=== PATIENT | female | born 1990 ===

== ENCOUNTER 2020-06-22 12:16 | Outpatient (REF) | payer OTHER, SELFPAY | END 2020-06-22 12:17 | disposition home or self-care (01) | LOC: HO.LAB 12:16 | PROVIDERS: Visit Provider Internal Medicine | DX: Z20.828 Contact with and (suspected) exposure to other viral communicable diseases (principal) | CPT/HCPCS: 87635 ==

== ENCOUNTER 2020-09-06 11:22 | Outpatient (REF) | payer OTHER, SELFPAY | END 2020-09-06 11:23 | disposition home or self-care (01) | LOC: HO.LAB 11:22 | PROVIDERS: Visit Provider Internal Medicine | DX: Z20.828 Contact with and (suspected) exposure to other viral communicable diseases (principal) | CPT/HCPCS: 36415; C9803; U0003 ==

== ENCOUNTER 2020-09-13 09:52 | Outpatient (REF) | payer OTHER, SELFPAY | END 2020-09-13 09:53 | disposition home or self-care (01) | LOC: HO.LAB 09:52 | PROVIDERS: Visit Provider Internal Medicine | DX: Z20.822 Contact with and (suspected) exposure to COVID-19 (principal) | CPT/HCPCS: 36415; C9803; U0003 ==

== ENCOUNTER 2020-09-25 12:53 | Outpatient (REF) | payer OTHER, SELFPAY | END 2020-09-25 12:54 | disposition home or self-care (01) | LOC: HO.LAB 12:53 | PROVIDERS: Visit Provider Internal Medicine | DX: Z20.822 Contact with and (suspected) exposure to COVID-19 (principal) | CPT/HCPCS: 36415; C9803; U0003 ==

== ENCOUNTER 2020-10-30 15:47 | Outpatient (REF) | payer OTHER, SELFPAY | END 2020-10-30 15:48 | disposition home or self-care (01) | LOC: HO.LAB 15:47 | PROVIDERS: Visit Provider Internal Medicine | DX: Z20.822 Contact with and (suspected) exposure to COVID-19 (principal) | CPT/HCPCS: 36415; C9803; U0003; U0005 ==

== ENCOUNTER 2020-11-14 12:38 | Outpatient (REF) | payer OTHER, SELFPAY | END 2020-11-14 12:39 | disposition home or self-care (01) | LOC: HO.LAB 12:38 | PROVIDERS: Visit Provider Internal Medicine | DX: Z20.822 Contact with and (suspected) exposure to COVID-19 (principal) | CPT/HCPCS: 36415; C9803; U0003; U0005 ==

== ENCOUNTER 2020-12-27 12:06 | Outpatient (REF) | payer OTHER, SELFPAY ==
[2020-12-27 12:56] LABS: COVID-19 Test Negative (Negative)
== END 2020-12-27 12:07 | disposition home or self-care (01) ==
LOC: HO.LAB 12:06
PROVIDERS: Visit Provider Internal Medicine
DX: Z20.822 Contact with and (suspected) exposure to COVID-19 (principal)
CPT/HCPCS: 36415; 87635; C9803

== ENCOUNTER 2021-07-02 08:09 | Emergency (ER) | payer SELFPAY ==
[2021-07-02 08:37] VITALS: BP 126/69; PULSE 63; RESP 18; TEMP 36.1; O2SAT 98; BMI 33.6
[2021-07-02 08:59] LABS: IDNOW Serial# 9DD0AD1C; Strep A Nucleic Acid Negative (Negative)
--- NOTE | 2021-07-02 09:50 | ED.GENADULT ---
HPI - General Adult General Chief complaint: General Medical Stated complaint: sore throat, ear pain Time Seen by Provider: 07/02/21 09:48 Source: patient Mode of arrival: ambulatory Limitations: no limitations History of Present Illness HPI narrative: 31-year-old female came in for evaluation of sore throat and ear pain. No sick contacts, no recent travel, patient declined any fever or chills. Related Data Previous Rx's Medication Instructions Recorded amoxicillin 500 mg tablet 500 mg PO Q12H #14 tab 07/02/21 Allergies Allergy/AdvReac Type Severity Reaction Status Date / Time No Known Allergies Allergy Unverified 05/18/20 16:05 Review of Systems Review of Systems: All other systems are reviewed and are negative Constitutional: Reports as per HPI and Reports no additional constitutional complaints Eyes: Reports as per HPI and Reports no additional eye complaints Reports system reviewed and no additional complaints, except as documented Cardiovascular: Reports as per HPI and Reports no additional cardiovascular complaints Respiratory: Reports as per HPI and Reports no additional respiratory complaints Gastrointestinal: Reports as per HPI and Reports no additional gastrointestinal complaints Genitourinary: Reports no additional female genitourinary complaints Musculoskeletal: Reports no additional musculoskeletal complaints Skin/Breast: Reports system reviewed and no additional complaints, except as docu Psychiatric: Reports no additional psychiatric complaints Endocrine: Reports no additional endocrine complaints Hematologic/Lymphatic: Reports no additional hematologic/lymphatic complaints Allergic/Immunologic: Reports no additional allergic/immunologic complaints Reports system reviewed and no additional complaints, except as documented and Reports Abnormal speech present [facility] Past Medical History Medical History No known health problems Social History Social History Advance Directives: No Patient : No Physical Exam Vital Signs: Vital Signs: Last Vital Signs Temp 97 F 07/02/21 08:37 Pulse 63 07/02/21 08:37 Resp 18 07/02/21 08:37 BP 126/69 07/02/21 08:37 Pulse Ox 98 07/02/21 08:37 Body Mass Index 33.6 vital signs have been reviewed as appeared to be correct. Blood pressure normal. Heart rate normal. Respiration rate normal. Temperature normal. Oxygen saturation normal. Appearance: Alert. Oriented X3. No acute distress. Head: Normal external exam. Normocephalic. Atraumatic. No Colvin signs noted. No raccoon eyes noted Eyes: PERRLA. EOMI. Conjunctiva and sclera normal. Eyelids normal. ENT: TM's Erythematous bilaterally,. Pharynx erythema. Uvula midline. Moist mucous membranes. No trismus noted. No drooling noted. No muffled voice noted. Neck: Normal inspection. Neck supple. FROM. No adenopathy. Thyroid Normal. No meningeal signs. No neck mass noted. CVS: Normal heart rate and rhythm. Heart sound normal. No murmurs noted. Pulses normal throughout. Respiratory: No respiratory distress. Painless inspiration. Breath sounds normal. No wheezes/rales/rhonchi noted. Chest nontender. No accessory muscle usage noted or decreased air movement noted. Abdomen: Soft and nontender. Bowel sounds normal in all 4 quadrants. No distention noted. No organomegaly noted. No visible injury noted. Back: No CVA tenderness. Full range of motion noted. Skin: Skin warm and dry. Normal skin color. Normal skin turgor. No rashes/lesions/lacerations noted. Extremities: No lower extremity edema. Extremities exhibit normal range of motion. Extremities nontender. Neuro: Oriented X 3. Cranial nerve exam: II-XII are grossly intact No motor deficit. No sensory deficit. Reflexes normal. Course Course Course Narrative: pharyngitis/bilateral otitis media. Will start the patient on amoxicillin. Medical Decision Making Lab Data Lab results reviewed: Yes I reviewed the patient's lab results. Labs: Lab Results 07/02/21 Range/Units 08:44 S. pyogenes GrpA CANDY Negative (Negative) Discharge Plan Discharge Clinical Impression: Pharyngitis, Otitis media Patient Disposition: Home, Self-Care Instructions: Pharyngitis (ED), Ear Infection (ED) Prescriptions: New amoxicillin 500 mg tablet 500 mg PO Q12H Qty: 14 RF: 0 Referrals: Physician,None [Primary Care Provider] - 2 days
[2021-07-02] MEDS: Amoxicillin 500 MG CAPSULE PO (10:16)
== END 2021-07-02 10:23 | disposition home or self-care (01) ==
PROVIDERS: Emergency Provider Emergency Medicine
DX: J02.9 Acute pharyngitis, unspecified (principal); H66.93 Otitis media, unspecified, bilateral
CPT/HCPCS: 36415; 87651; 99283

== ENCOUNTER 2022-05-21 14:44 | Outpatient (REF) | payer SELFPAY ==
[2022-05-21 15:05] LABS: MANUAL DIFF FLAG NO
[2022-05-21 16:21] LABS: Basophils Absolute Auto 0.1 X10*3/uL (0.0-0.2); Basophils Percent Auto 0.4 % (0-2); Eosinophils Percent Auto 0.3 % (0-4); Hematocrit 44.2 % (37.0-47.0); Hemoglobin 14.9 g/dl (12.0-16.0); Imm Gran Abs Auto 0.04 X10*3/uL (0.00-0.03); Imm Gran Pct Auto 0.3 % (0.0-0.4); Lymphocytes Absolute Auto 3.2 X10*3/uL (1.2-4.9); Lymphocytes Percent Auto 27.7 % (20-40); Mean Corpuscular HGB Conc 33.7 g/dl (31.0-35.0); Mean Corpuscular Hemoglobin 31.4 pg (27.0-33.0); Mean Corpuscular Volume 93.1 fL (80.0-98.0); Mean Platelet Volume 11.8 fL (9.4-12.3); Monocytes Absolute Auto 0.6 X10*3/uL (0.1-1.2); Monocytes Percent Auto 5.2 % (2-11); Neutrophils Absolute Auto 7.7 x10*3/uL (2.0-8.3); Neutrophils Percent Auto 66.1 % (45-73); Platelet Count 363 X10*3/uL (160-400); Red Blood Count 4.75 X10*6/uL (4.20-5.50); Red Cell Distribution Width 12.9 % (11.0-16.0); White Blood Count 11.6 X10*3/uL (4.8-10.8)
[2022-05-21 16:49] LABS: Alanine Aminotransferase 15 U/L (0-31); Albumin Level 4.9 g/dL (3.5-5.0); Alkaline Phosphatase 68 U/L (39-117); Anion Gap 19 (12-20); Aspartate Amino Transferase 17 U/L (5-31); Bilirubin Total 0.9 mg/dL (0.0-1.0); Blood Urea Nitrogen 13 mg/dL (9-16); Calcium 10.1 mg/dL (8.4-10.2); Carbon Dioxide 25 mmol/L (22-29); Chloride 101 mmol/L (96-108); Estimated Glomerular Filt Rate > 60; Glucose Random 65 mg/dL (60-115); Potassium 4.5 mmol/L (3.3-5.1); Sodium 140 mmol/L (135-145)
[2022-05-21 17:08] LABS: TSH reflex Free T4 0.42 uIU/mL (0.32-4.0)
== END 2022-05-21 14:45 | disposition home or self-care (01) ==
LOC: HO.LAB 14:44
PROVIDERS: PCP Internal Medicine; Visit Provider Internal Medicine
DX: F32.9 Major depressive disorder, single episode, unspecified (principal); F41.0 Panic disorder [episodic paroxysmal anxiety]; R63.4 Abnormal weight loss; Z72.0 Tobacco use
CPT/HCPCS: 36415; 80053; 84443; 85025

== ENCOUNTER 2023-01-21 17:25 | Emergency (ER) | payer OTHER, SELFPAY ==
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
[2023-01-21 17:37] VITALS: BP 138/79; PULSE 115; RESP 20; TEMP 36.7; O2SAT 96; BMI 29.0
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
[2023-01-21] MEDS: Acetaminophen 325 MG TABLET 650 MG PO (17:44)
--- NOTE | 2023-01-21 19:42 | PC.NURSE ---
assumed care of pt aox4 no apparent distress resting quietly tylenol administered prior to this nurse assuming care ineffective per pt pain rate remains 10/10
[2023-01-21 19:44] VITALS: BP 101/58; PULSE 67; RESP 16; TEMP 37; O2SAT 97
--- NOTE | 2023-01-21 20:13 | PC.NURSE ---
h/a and neck pain remain, chest pain resolved
[2023-01-21] MEDS: Cyclobenzaprine HCl 10 MG TABLET PO (20:40)
[2023-01-21] MEDS: Ibuprofen 600 MG TABLET PO (20:40)
[2023-01-21 20:46] VITALS: BP 119/76; PULSE 72; RESP 18; TEMP 36.5; O2SAT 97
--- NOTE | 2023-01-21 20:46 | PC.NURSE ---
administered cyclobenzaprine and ibuprofen PO per MAR
--- NOTE | 2023-01-21 20:47 | PC.NURSE ---
Discharge instructions given and explained to patient aox4 no apparent distress pt picked up by family member upon discharge ambulates safely and independently
== END 2023-01-21 20:49 | disposition home or self-care (01) ==
PROVIDERS: Emergency Provider Emergency Medicine; PCP Internal Medicine
DX: M54.2 Cervicalgia (principal); R51.9 Headache, unspecified; S13.4XXA Sprain of ligaments of cervical spine, initial encounter; V43.52XA Car driver injured in collision with other type car in traffic accident, initial encounter; Y93.9 Activity, unspecified; Y92.9 Unspecified place or not applicable; Y99.9 Unspecified external cause status
CPT/HCPCS: 70450; 71046; 72125; 99284; 99285

== ENCOUNTER 2025-05-15 00:02 | Emergency (ER) | payer OTHER, SELFPAY ==
--- NOTE | ~2025-05-15 | XR_ITS ---
CLINICAL HISTORY: back pain 3 views lumbar spine Comparison: None provided Findings: Normal vertebral body alignment. No acute fractures or dislocation. Minimal degenerative endplate changes at L5-S1. IMPRESSION: No acute fracture. This document has been electronically signed by: Lyn Maciel MD on 05/15/2025 01:47:17
[2025-05-15 00:09] VITALS: BP 118/65; PULSE 96; RESP 20; TEMP 36.5; O2SAT 97; BMI 30.1
--- NOTE | 2025-05-15 00:23 | ED_ITS ---
HPI - Back Pain/Injury General Chief Complaint: Back Pain/Injury Stated Complaint: lower back pain Time Seen by Provider: 05/15/25 00:15 History of Present Illness HPI Narrative: Patient is a 35-year-old female presents today with having lower back pain since 17:00. Patient has tried Tylenol did not help. Denies any bowel urinary incontinence. Denies any fever chills. No trauma. Patient is from home. No pain on urination. No flank pain. No radiation of the pain. Related Data Previous Rx's ?Medication ?Instructions ?Recorded amoxicillin 500 mg tablet 500 mg PO Q12H #14 tabs 11/0 09/21 cyclobenzaprine 10 mg tablet 10 mg PO TID PRN muscle s pasm #10 01/21/23 tabs ibuprofen 600 mg tablet 600 mg PO TID PRN pain #10 t abs 01/21/23 cyclobenzaprine 10 mg tablet 10 mg PO TID PRN pain #14 tabs 05/15/25 ibuprofen 400 mg tablet 400 mg PO Q6H PRN pain #20 t abs 05/15/25 Allergies Allergy/AdvReac Type Severity Reaction Status Date / Time No Known Allergies Allergy Verified 05/15/25 00:13 Review of Systems Review of Systems: Positive lower back pain Yes all other systems are reviewed and are negative [facility] Past Medical History Attestation statement: The following information was validated with the patient. Medical History No known health problems Social History Social History Alcohol intake: never Smoked in Last 30 Days: No Use of substances other than those prescribed or required for medical reasons: No Advance Directives: No Patient : No Physical Exam Exam: Exam: Appearance: Alert. Oriented X3. No acute distress. Eyes: Pupils equal, round and reactive to light. ENT: Pharynx normal. Neck: Normal inspection. Neck supple. No lymph nodes noted. No crepitus CVS: Normal heart rate and rhythm. Pulses normal. Normal S1 and S2 Respiratory: No respiratory distress. Breath sounds normal. No Wheezing. No rales Abdomen: Soft and nontender. No rigidity. No distention. good BS x4. No CVA tenderness elicited on palpation Skin: Skin warm and dry. Normal skin color. Normal skin turgor. Extremities: No lower extremity edema. Neurovascular intact to all extremities. No Lacerations. No Rash Neuro: Oriented X 3. No motor deficit. No sensory deficit. Moving all extermities. No slurred speech. Bilateral lower extremity sensation intact. Motor intact. Vital Signs: Vital Signs: Last Vital Signs Temp 97.7 F 05/15/25 00:09 Pulse 96 05/15/25 00:09 Resp 20 05/15/25 00:09 BP 118/65 05/15/25 00:09 Pulse Ox 97 05/15/25 00:09 O2 Del Method Room Air 05/15/25 00:09 BMI result Body Mass Index 30.1 Medications Administered Discontinued Medications Generic Name Dose Route Start Last Admin Trade Name Yamilex PRN Reason Stop Dose Admin Ketorolac Tromethamine 30 mg 05/15/25 00:22 05/15/25 00:44 Ketorolac Tromethamine 30 Mg/Ml Vial IM 05/15/25 00:23 30 mg ONCE ONE Administration Lorazepam 1 mg 05/15/25 00:22 05/15/25 00:44 Lorazepam 1 Mg Tablet PO 05/15/25 00:23 1 mg ONCE ONE Administration Medical Decision Making Medical Decision Making MDM Narrative: Patient claims there is no chance of being since she is not active with any med. Patient's claims the pain is in the lower back there is no bowel urinary incontinence is no focal weakness is no fever no chills. There is no trauma. She did want an x-ray explained to her more likely the x-ray will not show the pathology of the back pain but she insisted. An x-ray was ordered. No fever no chills no signs suggest patient has a spinal abscess. Patient has no history of IV drug use. She has no focal weakness. There is no signs of cauda equinus syndrome. Will give a dose of pain medication will give some muscle relaxant and monitor. Currently pending x-ray of the lower back. Patient's urine appears extremely contaminated Differential Diagnosis Differential Diagnoses: The differential diagnosis associated with the presentation includes Back pain Admission/Observation Consideration of admission/observation: Escalation of care including admission/observation considered Lab Data [facility] Lab Attestation statement: I reviewed the patient's lab results. Labs: Lab Results 05/15/25 Range/Units 01:15 Urine Color Yellow Urine Appearance Clear Urine pH 5.5 (5.0-9.0) Ur Specific [place] 1.025 (1.005-1.025) Urine Protein Negative (Neg-Trace) mg/dL Urine Glucose (UA) Negative (Negative) mg/dL Urine Ketones Negative (Negative) mg/dL Urine Blood Negative (Negative) Urine Nitrite Negative (Negative) Ur Leukocyte Esterase Trace H (Negative) Urine RBC 0-2 (0-2) /HPF Urine WBC 0-5 (0-5) /HPF Ur Squamous Epith Cells 11-20 (0-2) /HPF Urine Bacteria 3+ (None Seen) Hyaline Casts 0-2 (0-2) /LPF Independent Interpretation I performed an independent interpretation of an: Plain X-Ray (My interpretation of lumbar film was grossly negative for fracture. No malalignment) Radiology Impression Discussion of test interpretation with radiology: I have reviewed the radiologist's reading. Prescription Management I considered prescription management with: Pain Medication Social Determinants Patient?s care significantly limited by Social Determinants of Health including: Problems related to primary support group Discharge Plan Discharge Clinical Impression: Strain of lumbar region Patient Disposition: Home, Self-Care Instructions: Low Back Strain (ED) Prescriptions: New cyclobenzaprine 10 mg tablet 10 mg PO TID PRN (Reason: pain) Qty: 14 0RF ibuprofen 400 mg tablet 400 mg PO Q6H PRN (Reason: pain) Qty: 20 0RF No Action amoxicillin 500 mg tablet 500 mg PO Q12H Qty: 14 0RF cyclobenzaprine 10 mg tablet 10 mg PO TID PRN (Reason: muscle spasm) Qty: 10 0RF ibuprofen 600 mg tablet 600 mg PO TID PRN (Reason: pain) Qty: 10 0RF Referrals: Nina Arias MD [Primary Care Provider, Internal Medicine] - 05/17/25 Print Language: Swedish
--- NOTE | 2025-05-15 00:52 | PC.NURSE ---
pt medicated per oct, tolerated whole well with water. urine cup given to pt and instructed on use
--- OUTSIDE RECORDS SUMMARY | 2025-05-15 01:16 | XMS_ITS | Encounter Summary ---
Author Organization [facility] Address [address] [place] [address] Care Team Providers Care Brim Presser Name Role Phone Physician, Pcp Unknown Primary Care Provider Estrellita vailable Encounter Details Date Type Department Care Team (Late st Contact Info) Description 04/19/2025 Lab Requisition [facility] Lab [address] [facility] [place] [address] Nina Arias MD [address] [place] [address] [place] [address] Encounter for screening for malignant neoplasm of cervix Social History Tobacco Use Types Packs/Day Years Used Date Smoking Tobacco: Never Assessed Comments Unknown Sex and Gender Information Value Date Recorded Sex Assigned at Not on file Legal Sex Female 10:26 AM EST Gender Identity Not on file Sexual Orientation Not on file documented as of this encounter Plan of Treatment Pending Results Name Type Priority Associated Diagnoses Date /Time Pap smear Pathology and Cytology Routine Encounter for screening for malignant neoplasm of cervix 04/18/2025 12:00 PM EDT documented as of this encounter Procedures Procedure Name Priority Date/Time Associated Diagnosis Comments CHLAMYDIA TRACHOMATIS AND NEISSERIA GONORRHOEAE BY TMA, THINPREP Routine 04/18/2025 12:00 PM EDT Encounter for screening for malignant neoplasm of cervix HPV WITH REFLEX GENOTYPE Routine 04/18/2025 12:00 PM EDT Encounter for screening for malignant neoplasm of cervix TRICHOMONAS VAGINALIS PCR Routine 04/18/2025 12:00 PM EDT Encounter for screening for malignant neoplasm of cervix documented in this encounter Results * HPV with reflex genotype (04/18/2025 12:00 PM EDT) HPV Negative Negative LAB MICROBIOLOGY METHOD 04/19/2025 1:50 PM EDT [facility] Brushing/Spatula Cervix uteri structure / Unknown 04/18/2025 12:00 PM EDT 04/19/2025 6:37 AM EDT us Nina Arias MD LAB MOLECULAR DIAGNOSTICS ORD ERABLES Final Result [facility] [address] [place] [address], [place] [phone] * Trichomonas vaginalis molecular study (04/18/2025 12:00 PM EDT) Pathologist [facility] Trichomonas vaginalis Negative Negative LAB MICROBIOLOGY METHOD 04/19/2025 12:14 PM EDT [facility] Brushing/Spatula Cervix uteri structure / Unknown 04/18/2025 12:00 PM EDT 04/19/2025 6:37 AM EDT Nina Arias MD LAB BLOOD ORDERABLES Final Re sult [facility] [address] [place] [address], [place] [phone] * Chlamydia trachomatis and neisseria gonorrhoeae by tma, thinprep (04/18/2025 12:00 PM EDT) Pathologist [facility] N. gonorrhoeae, RNA Probe Negative Negative LAB MICROBIOLOGY METHOD 04/19/2025 12:04 PM EDT [facility] Chlamydia, RNA Probe Negative Negative LAB MICROBIOLOGY METHOD 04/19/2025 12:04 PM EDT [facility] Brushing/Spatula Cervix uteri structure / Unknown 04/18/2025 12:00 PM EDT 04/19/2025 6:37 AM EDT us Nina Arias MD LAB CYTOLOGY ORDERABLES Final Result [facility] [address] [place] [address], documented in this encounter Visit Diagnoses Diagnosis Encounter for screening for malignant neoplasm of cervix documented in this encounter Care Teams Brim Presser Relationship Specialty Start Date End Date Physician, Pcp Unknown PCP - General 04/19/25 documented as of this encounter
--- OUTSIDE RECORDS SUMMARY | 2025-05-15 01:16 | XMS_ITS | Clinical Summary ---
Author Organization [address] [facility] Address [address] [place] [address] Phone Care Team Providers Care Special Librarian Name Role Phone Physician, Pcp Unknown Primary Care Provider Estrellita vailable Encounters Date Type Department Care Team Description 04/19/2025 Lab Requisition [facility] - Main Lab [address] [facility] [place] [place] [address] Nina Arias MD Encounter for screening for malignant neoplasm of cervix from Last 3 Months Social History Tobacco Use Types Packs/Day Years Used Date Smoking Tobacco: Never Assessed Comments Unknown Sex and Gender Information Value Date Recorded Sex Assigned at Not on file Legal Sex Female 10:26 AM EST Gender Identity Not on file Sexual Orientation Not on file Plan of Treatment Health Maintenance Due Date Last Done Comments DTaP,Tdap,and Td Vaccines (1 - Tdap) 2009 Hepatitis B Vaccines (1 of 3 - 19+ 3-dose series) 2009 HIV Screening 09/30/2023 Hepatitis C Screening 09/30/2023 Social Influencers of Health Screening 09/30/2023 COVID-19 Vaccine (1 - 2023-2 5 season) 2024 Depression Screening 09/01/2024 Influenza Vaccine (#1) 2025 Cervical Cancer Screening: HPV 04/18/2030 04/18/2025 HIB Vaccines Aged Out No longer eligi ble based on patient's age to complete this topic HPV Vaccines Aged Out No longer eligi ble based on patient's age to complete this topic Hepatitis A Vaccines Aged Out No long er eligible based on patient's age to complete this topic IPV Vaccines Aged Out No longer eligi ble based on patient's age to complete this topic MMR Vaccines Aged Out No longer eligi ble based on patient's age to complete this topic Meningococcal ACWY Vaccine Aged Out N o longer eligible based on patient's age to complete this topic Meningococcal B Vaccine Aged Out No l onger eligible based on patient's age to complete this topic Pneumococcal Vaccine: Pediat rics (0 to 5 Years) and At-Risk Patients (6 to 49 Years) Aged Out No longer eligi ble based on patient's age to complete this topic RSV Immunization Patients Un sher 20 months Aged Out No longer eligible b ased on patient's age to complete this topic Varicella Vaccines Aged Out No longer eligible based on patient's age to complete this topic Procedures Procedure Name Priority Date/Time Associated Diagnosis Comments CHLAMYDIA TRACHOMATIS AND NEISSERIA GONORRHOEAE BY TMA, THINPREP Routine 04/18/2025 12:00 PM EDT Encounter for screening for malignant neoplasm of cervix HPV WITH REFLEX GENOTYPE Routine 04/18/2025 12:00 PM EDT Encounter for screening for malignant neoplasm of cervix TRICHOMONAS VAGINALIS PCR Routine 04/18/2025 12:00 PM EDT Encounter for screening for malignant neoplasm of cervix from Last 3 Months Results * Chlamydia trachomatis and neisseria gonorrhoeae by tma, thinprep (04/18/2025 12:00 PM EDT) N. gonorrhoeae, RNA Probe Negative Negative LAB MICROBIOLOGY METHOD 04/19/2025 12:04 PM EDT [facility] Chlamydia, RNA Probe Negative Negative LAB MICROBIOLOGY METHOD 04/19/2025 12:04 PM EDT [facility] Brushing/Spatula Cervix uteri structure / Unknown 04/18/2025 12:00 PM EDT 04/19/2025 6:37 AM EDT us Nina Arias MD LAB CYTOLOGY ORDERABLES Final Result [facility] [address] [place] [address], [place] [phone] * HPV with reflex genotype (04/18/2025 12:00 PM EDT) HPV Negative Negative LAB MICROBIOLOGY METHOD 04/19/2025 1:50 PM EDT [facility] Brushing/Spatula Cervix uteri structure / Unknown 04/18/2025 12:00 PM EDT 04/19/2025 6:37 AM EDT Nina Arias MD LAB MOLECULAR DIAGNOSTICS ORD ERABLES Final Result [facility] [address] [place] [address], [place] [phone] * Trichomonas vaginalis molecular study (04/18/2025 12:00 PM EDT) Trichomonas vaginalis Negative Negative LAB MICROBIOLOGY METHOD 04/19/2025 12:14 PM EDT [facility] Brushing/Spatula Cervix uteri structure / Unknown 04/18/2025 12:00 PM EDT 04/19/2025 6:37 AM EDT Nina Arias MD LAB BLOOD ORDERABLES Final Re sult [facility] [address] [place] [address], [place] [phone] from Last 3 Months Insurance [employer] Care Teams Special Librarian Relationship Specialty Start Date End Date Physician, Pcp Unknown PCP - General 04/19/25
[2025-05-15 01:22] LABS: Appearance Urine Clear; Glucose Urine UA Negative (Negative); PH 5.5 (5.0-9.0); Specific Gravity - Urine 1.025 (1.005-1.025); UMIC TRIGGER UACC YES
[2025-05-15 02:05] VITALS: BP 103/65; PULSE 64; RESP 20; TEMP 36.8; O2SAT 97
== END 2025-05-15 02:08 | disposition home or self-care (01) ==
PROVIDERS: Emergency Provider Emergency Medicine Emergency Medical Services; PCP Internal Medicine
DX: S39.012A Strain of muscle, fascia and tendon of lower back, initial encounter (principal); X58.XXXA Exposure to other specified factors, initial encounter; Y93.9 Activity, unspecified; Y92.9 Unspecified place or not applicable; Y99.8 Other external cause status
CPT/HCPCS: 72100; 81001; 96372; 99284; J1885

== ENCOUNTER → 2025-05-15 00:22 | Outpatient (BNV) | payer OTHER, SELFPAY | PROVIDERS: Emergency Provider Emergency Medicine Emergency Medical Services; PCP Internal Medicine; Visit Provider Student in an Organized Health Care Education/Training Program | DX: M51.370 Other intervertebral disc degeneration, lumbosacral region with discogenic back pain only (principal) | CPT/HCPCS: 72100 ==